=== PATIENT | female | born 1970 | race Two or more races ===

== ENCOUNTER 2024-09-30 21:47 | Emergency (ER) | payer OTHER ==
[~2024-09-30] VITALS: Ht 162.6 cm; Wt 102.1 kg
[~2024-09-30 21:47] MED LIST: COZAAR25 MG; LIPITOR20 MG; [UNRECOGNIZED DRUG - OTHER]
[2024-09-30 22:31] VITALS: BP 100/71; O2SAT 97
[2024-09-30] MEDS ORDERED: 0.9 % SODIUM CHLORIDE 1,000 ML IV STA (23:30)
[2024-09-30] MEDS ORDERED: ONDANSETRON HCL 2 MG/ML VIAL IV STA (23:30)
[2024-09-30] MEDS ORDERED: FAMOTIDINE/PF 20 MG in 0.9 % SODIUM CHLORIDE 8 ML IV PUSH STA (23:31)
[2024-10-01 00:29] LABS: HEMATOCRIT 39.9 % (36.0-45.00); HEMOGLOBIN 12.8 g/dL (12.0-15.00); MEAN CELL VOLUME 75.7 fL (80.00-100.00); MEAN CORPUSCULAR HEMOGLOBIN 24.2 pg (27.00-32.0); PLATELET COUNT 336 K/uL (150-450); RED BLOOD COUNT 5.27 M/uL (4.00-6.00); RED CELL DISTRIBUTION WIDTH 16.6 % (11.5-14.5)
[2024-10-01 00:35] LABS: AMYLASE 52 U/L (25-115)
[2024-10-01 00:36] LABS: LIPASE 25 U/L (13-75)
[2024-10-01 03:32] LABS: URINE APPEARANCE Clear; URINE BILIRRUBIN Negative (NEGATIVE); URINE BLOOD Negative; URINE COLOR Yellow; URINE GLUCOSE Negative (NEGATIVE); URINE KETONE 15 (NEGATIVE); URINE LEUKOCYTE Small; URINE NITRATE Negative; URINE PROTEIN Trace (NEGATIVE); URINE UROBILINOGEN 0.2 E.U./dl
[2024-10-01 03:36] LABS: URINE BACTERIA 2091.4 uL (0.0-1933); URINE EPITHELIAL CELLS 7.7 uL (0.0-38.8); URINE RBC 5.4 uL (0.0-20.8); URINE WBC 153.9 uL (0.0-23.2)
[2024-10-01] MEDS ORDERED: PEPCID40 MG PO (05:13)
[2024-10-01] MEDS ORDERED: ONDANSETRON ODT8 MG PO (05:13)
== END 2024-10-01 05:21 ==
LOC: ER 21:47
PROVIDERS: Emergency Medicine
DX: K29.70 Gastritis, unspecified, without bleeding (principal); I10 Essential (primary) hypertension